=== PATIENT | female | born 1980 | race Caucasian/White ===

== ENCOUNTER 2022-10-27 19:49 | Emergency (ER) | payer BC, OTHER, SELFPAY ==
[2022-10-27 19:53] VITALS: BP 116/60; PULSE 79; RESP 18; TEMP 36.4; O2SAT 100; BMI 34.5
--- NOTE | 2022-10-27 20:02 | XR_ITS ---
The [address] [address] Patient Name: SARA MIJARES MRN: [id number] date: 1980 Sex: F Assigned Patient Location: ER Current Patient Location: ER Accession/Order Number: [id number] Exam Date: 10/27/2022 20:05 Report Date: 10/27/2022 21:26 At the request of: DILIP AGUERO Procedure: XR ankle LT min 3V XR foot LT min 3V, XR ankle LT min 3V 10/27/2022 8:05 PM EDT CLINICAL INDICATION: Injury COMPARISON: None. TECHNIQUE: 3 views of the left foot. 3 views of the left ankle. FINDINGS: Left foot Remote fracture of the navicular bone. The bones are otherwise intact. The alignment is anatomic. The joints are maintained. The soft tissues are grossly unremarkable. Left ankle The bones are intact. The alignment is anatomic. The joints are maintained. Thel soft tissues are grossly unremarkable. XR/XR ankle LT min 3V IMPRESSION: No acute osseous abnormality of the left foot or left ankle. Electronically authenticated by: GAMAL LYNNE Date: 10/27/2022 21:26
--- NOTE | 2022-10-27 20:02 | XR_ITS ---
The [address] [address] Patient Name: SARA MIJARES MRN: [id number] date: 1980 Sex: F Assigned Patient Location: ER Current Patient Location: ER Accession/Order Number: [id number] Exam Date: 10/27/2022 20:05 Report Date: 10/27/2022 21:26 At the request of: DILIP AGUERO Procedure: XR foot LT min 3V XR foot LT min 3V, XR ankle LT min 3V 10/27/2022 8:05 PM EDT CLINICAL INDICATION: Injury COMPARISON: None. TECHNIQUE: 3 views of the left foot. 3 views of the left ankle. FINDINGS: Left foot Remote fracture of the navicular bone. The bones are otherwise intact. The alignment is anatomic. The joints are maintained. The soft tissues are grossly unremarkable. Left ankle The bones are intact. The alignment is anatomic. The joints are maintained. Thel soft tissues are grossly unremarkable. XR/XR foot LT min 3V IMPRESSION: No acute osseous abnormality of the left foot or left ankle. Electronically authenticated by: GAMAL LYNNE Date: 10/27/2022 21:26
--- NOTE | 2022-10-27 20:07 | PC.NURSE ---
Left little toe ecchymotic. PMS intact
--- NOTE | 2022-10-27 20:18 | ED_ITS ---
HPI - Extremity Injury (Lower) General Chief Complaint: Extremity Injury, Lower Stated Complaint: LT FOOT INJURY Time Seen by Provider: 10/27/22 19:57 Source: patient Mode of arrival: walk-in Limitations: no limitations History of Present Illness HPI Narrative: stubbed left 5th toe on her boat around 2pm. Presents due to continued pain and the toe was starting to bruise. No weakness or numbness of the toe. Denies other injury MD complaint: Reports foot injury Injury: Left: toes Place: Reports street/outdoors Related Data Home Medications Medication Instructions Recorded Confirmed phentermine 37.5 mg tablet mg 10/27/22 semaglutide (weight loss) 2.4 mg subcut 10/27/22 mg/0.75 mL subcutaneous pen injector ([employer]) Allergies Allergy/AdvReac Type Severity Reaction Status Date / Time No Known Drug Allergies Allergy Verified 10/27/22 19:53 Review of Systems ROS Status of ROS 10 or more systems reviewed and unremarkable except as noted in history and below PFSH PFS Social History Smoking status: Former smoker Exam Constitutional Vital Signs, click to edit/add: Last Vital Signs Temp 97.6 F 10/27/22 19:53 Pulse 79 10/27/22 19:53 Resp 18 10/27/22 19:53 BP 116/60 10/27/22 19:53 Pulse Ox 100 10/27/22 19:53 O2 Del Method Room Air 10/27/22 19:53 Common normals: no apparent distress, oriented x3, healthy appearing, alert and well nourished Eye Common normals: EOMs intact bilaterally, conjunctivae normal and no scleral icterus Respiratory Common normals: normal respiratory effort, no retractions, no use of accessory muscles and clear to auscultation bilaterally Cardio Common normals: regular rate, regular rhythm, S1 normal heart sound and S2 normal heart sound GI Common normals: Normal to inspection, nondistended, normoactive bowel sounds present Extremity Other: mild ecchymotic bruising left 5th toe. No deformity Neuro Common normals: oriented x3, CN's II-XII intact bilaterally, moves all extremi ties, no focal motor deficits and no sensory deficits noted Psych Appearance: grossly normal Course Vital Signs Vital signs: Vital Signs Temperature 97.6 F 10/27/22 19:53 Pulse Rate 79 10/27/22 19:53 Respiratory Rate 18 10/27/22 19:53 Blood Pressure 116/60 10/27/22 19:53 Pulse Oximetry 100 10/27/22 19:53 Oxygen Delivery Method Room Air 10/27/22 19:53 Temperature 97.6 F 10/27/22 19:53 Pulse Rate 79 10/27/22 19:53 Respiratory Rate 18 10/27/22 19:53 Blood Pressure 116/60 10/27/22 19:53 Pulse Oximetry 100 10/27/22 19:53 Oxygen Delivery Method Room Air 10/27/22 19:53 MDM - Extremity Injury (Lower) MDM Narrative Medical decision making narrative: stubbed her left 5th toe and has swelling and discoloration as well as pain. xray per radiologist without acute fracture. Patient informed of the above and provided an ortho shoe.Discharged home to follow up with her doctor Discharge Plan Discharge Chief Complaint: Extremity Injury, Lower Clinical Impression: Contusion of fifth toe, left Prescriptions / Home Meds: No Action phentermine 37.5 mg tablet Wegovy 2.4 mg/0.75 mL pen injector SUBCUT Instructions: Foot Contusion (ED) Additional Instructions: follow up with your doctor next week for recheck Stand Alone Forms: Portal Instructions Referrals: Physician,Non-Staff, MD [Primary Care Provider] - 1 week
[2022-10-27] MEDS: IBUPROFEN 400 MG TABLET 800 MG PO (21:01)
--- NOTE | 2022-10-27 22:04 | PC.NURSE ---
Fracture shoe placed. Circulation intact prior to and after placement
== END 2022-10-27 22:05 | disposition home or self-care (01) ==
LOC: ER 20:02
PROVIDERS: Emergency Provider Internal Medicine
DX: S90.122A Contusion of left lesser toe(s) without damage to nail, initial encounter (principal); W22.8XXA Striking against or struck by other objects, initial encounter; Z87.891 Personal history of nicotine dependence; Z79.899 Other long term (current) drug therapy
CPT/HCPCS: 73610; 73630; 99283